=== PATIENT | female | born 2000 | race Caucasian/White ===

== ENCOUNTER 2022-08-29 11:21 | Emergency (ER) | payer BC, SELFPAY ==
[2022-08-29 11:28] VITALS: BP 146/100; PULSE 88; TEMP 36.8; O2SAT 97; BMI 40.4
--- NOTE | 2022-08-29 11:55 | ED.GENADUL1 ---
HPI - General Adult General Chief complaint: Nausea/Vomiting/Diarrhea Stated complaint: BACK PAIN / VOTMING Time Seen by Provider: 08/29/22 11:29 Source: patient Mode of arrival: walk-in History of Present Illness HPI narrative: patient presents with right low back pain and now onset of menstrual discomfort today. She does not have personal or family history kidney stones. She has had previous appendectomy and cholecystectomy. She has had cysts on her ovaries but is not had torsion. Said the pain is quite intense since making her nauseated at this time. She says there is a possibility of . She's not been running a fever. Most discomfort is in the low back area and now it does radiate a little bit to the front as well. Movement seems to make it just a little bit more uncomfortable Related Data Home Medications Medication Instructions Recorded Confirmed promethazine 25 mg rectal 25 mg NV PRN nausea and vomiting 08/29/22 suppository (Promethegan) Allergies Allergy/AdvReac Type Severity Reaction Status Date / Time ceftriaxone [From Rocephin] Allergy Unknown Verified 08/29/22 11:33 sumatriptan [From Imitrex] Allergy Unknown Verified 08/29/22 11:33 Exam Narrative Exam Narrative: awake alert uncomfortable is having dry heaves and vomiting at this time. Vital signs are noted. Problem focused examination shows her back to be nontender to percussion. She has good breath sounds bilaterally with no wheezes rales or rhonchi. She does have a little bit of aching with palpation in her right lower lumbar area. There is no evidence of shingles or trauma or injury. Lower extremities have no edema or evidence of deep vein thrombosis or phlebitis. Abdomen showed no peritoneal findings rebound or rigidity. Mild tenderness in the lower right quadrant. Constitutional Vital Signs - 24 hr 08/29/22 11:28 Temperature 98.3 F Pulse Rate [Monitor] 88 Blood Pressure [Right Arm] 146/100 H Pulse Oximetry 97 Oxygen Delivery Method Room Air Course Vital Signs Vital signs: Vital Signs Temperature 98.3 F 08/29/22 11:28 Pulse Rate 88 08/29/22 11:28 Blood Pressure 146/100 H 08/29/22 11:28 Pulse Oximetry 97 08/29/22 11:28 Oxygen Delivery Method Room Air 08/29/22 11:28 Temperature 98.3 F 08/29/22 11:28 Pulse Rate 88 08/29/22 11:28 Blood Pressure 146/100 H 08/29/22 11:28 Pulse Oximetry 97 08/29/22 11:28 Oxygen Delivery Method Room Air 08/29/22 11:28 Medical Decision Making MDM Narrative Medical decision making narrative: this patient presents with history of cyclic vomiting. She said she started developing a problem when she was [age] years old and has seen specialists in various tertiary centers with no known etiology. She was actually recently prescribed to use marijuana for sleep disorder and does not see an association between recent marijuana use and any worsening of the cyclic vomiting that she's had for many years. Her CT scan did not show indication of pancreatitis or bowel obstruction or acute abdominal process or kidney stones. She was given sequential doses of IV fluids and anti-emetics including haloperidol which seem to be beneficial for her. She says she feels good enough that she would like to go home. Discharge Plan Discharge Chief Complaint: Nausea/Vomiting/Diarrhea Clinical Impression: Cyclic vomiting syndrome Patient Disposition: Home, Self-Care Time of Disposition Decision: 13:40 Prescriptions / Home Meds: No Action promethazine [Promethegan] 25 mg suppository 25 mg NV PRN (Reason: nausea and vomiting) Instructions: Cyclic Vomiting Syndrome (ED) Additional Instructions: frequent small sips of fluids to stay hydrated, medications as needed Stand Alone Forms: Portal Instructions Referrals: PATRICK LAUREANO [Primary Care Provider] - 1 week
--- NOTE | 2022-08-29 11:57 | CT_ITS ---
[address] [address] Patient Name: ERIN VALENTE MRN: [id number] date: 2000 Sex: F Assigned Patient Location: ER Current Patient Location: ER Accession/Order Number: [id number] Exam Date: 08/29/2022 12:18 Report Date: 08/29/2022 12:45 At the request of: MOON NEWELL Procedure: CT abdomen pelvis wo con EXAM: CT abdomen pelvis wo con HISTORY: pain right sided abdominal and back pain for a few days. Nausea and vomiting today. COMPARISON: 01/17/2021. TECHNIQUE: Axial CT imaging was performed through the abdomen and pelvis without intravenous contrast. Multiplanar reformats were performed. Dose reduction techniques were achieved by using automated exposure control and/or adjustment of mA and/or kV according to patient size and/or use of iterative reconstruction technique. FINDINGS: Lung bases: Lung bases are clear. No pleural effusion. GI upper: Unremarkable. Liver: Normal size and contour. Gallbladder: Cholecystectomy. Biliary system: No intra or extrahepatic biliary ductal dilatation. Spleen: Normal size. Pancreas: Unremarkable. Adrenal glands: Normal adrenal glands. Kidneys/ureters: Normal contours. No hydronephrosis or ureterolithiasis. No nephrolithiasis. Vessels: No aneurysm. Lymph Nodes: No lymphadenopathy. Small bowel: No wall thickening or dilatation. Colon: No wall thickening or dilatation. Appendix: Appendectomy. Peritoneal cavity: No free fluid or peritoneum. Lower : Tampon is noted within the vagina. The bladder is not well distended which limits evaluation. Question minimal haziness about the bladder. Several small left adnexal cystic structures are similar to prior examination, is likely physiologic in nature. Bones: No acute bony abnormality. Soft tissues: No acute finding. Additional findings: None. IMPRESSION: 1. No evidence of acute intra-abdominal abnormality. 2. Minimal haziness about the bladder-please exclude cystitis on clinical grounds. 3. Additional findings as above. Electronically authenticated by: JAMES KEN Date: 08/29/2022 12:45
[2022-08-29 12:09] LABS: Basophils Absolute Auto 0.1 10^3/uL (0.0-0.1); Basophils Percent Auto 0.4 % (0.2-2.0); Eosinophils Absolute Auto 0.1 10^3/uL (0.0-0.7); Eosinophils Percent Auto 0.9 % (0.9-7.0); Hematocrit 42.4 % (36.0-48.0); Hemoglobin 14.4 g/dL (12.0-16.0); Immature Granulocytes Abs Auto 0.05 10^3/uL (0.00-0.03); Immature Granulocytes Pct Auto 0.4 % (0.0-0.5); Lymphocytes Absolute Auto 3.3 10^3/uL (1.2-3.8); Lymphocytes Percent Auto 25.8 % (20.5-60.0); Mean Corpuscular Hemoglobin 28.6 pg (26.7-34.0); Mean Corpuscular Volume 84.3 fL (81.0-99.0); Mean Platelet Volume 9.3 fL (9.5-13.5); Monocytes Absolute Auto 0.9 10^3/uL (0.3-0.8); Monocytes Percent Auto 6.7 % (1.7-12.0); Neutrophils Absolute Auto 8.3 10^3/uL (1.4-6.5); Neutrophils Percent Auto 65.8 % (43.0-75.0); Platelet Count 501 10^3/uL (150-450); Red Blood Count 5.03 10^6/uL (4.20-5.40); Red Cell Distribution Width 13.9 % (11.0-15.0); White Blood Count 12.6 10^3/uL (4.0-11.0)
[2022-08-29] MEDS: KETOROLAC TROMETHAMINE 30 MG/ML VIAL IM (12:09)
[2022-08-29] MEDS: 0.9 % SODIUM CHLORIDE 1,000 ML 999 ML IV (12:09)
[2022-08-29] MEDS: ONDANSETRON PF 4 MG/2 ML VIAL IV (12:09)
[2022-08-29 12:10] LABS: Bilirubin Urine NEGATIVE (NEGATIVE); Blood Urine LARGE (NEGATIVE); Clarity Urine CLEAR (CLEAR); Color Urine LT. YELLOW (YELLOW); Glucose Urine UA NEGATIVE (NEGATIVE); Ketones Urine NEGATIVE (NEGATIVE); Leukocyte Esterase Urine NEGATIVE (NEGATIVE); Nitrite Urine NEGATIVE (NEGATIVE); Protein Urine NEGATIVE (NEG/TRACE); Specific Gravity Urine 1.015 (1.005-1.025); Urobilinogen Urine 0.2 EU/dL (0.2-1.0); pH Urine 7.5 (5.0-9.0)
[2022-08-29 12:12] LABS: Urine Microscopic Indicated YES
[2022-08-29 12:13] LABS: HCG Qualitative Urine* NEGATIVE (NEGATIVE)
[2022-08-29 12:18] LABS: Alanine Aminotransferase 20 U/L (14-59); Albumin Level 3.9 g/dL (3.4-5.0); Alkaline Phosphatase 74 U/L (46-116); Anion Gap 16.1; Aspartate Amino Transferase 19 U/L (15-37); BUN Creatinine Ratio 16.7; Bilirubin Total 0.3 mg/dL (0.2-1.0); Calcium 9.2 mg/dL (8.5-10.1); Carbon Dioxide 21.8 mmol/L (21.0-32.0); Chloride 103 mmol/L (98-107); Estimated GFR (African America >60 (>=60); Estimated GFR (Non-African Ame >60 (>=60); Glucose 109 mg/dL (74-106); Potassium 3.9 mmol/L (3.5-5.1); Sodium 137 mmol/L (136-145); Total Protein 7.9 g/dL (6.4-8.2)
[2022-08-29 12:21] LABS: Bacteria Urine TRACE #/HPF (NONE SEEN); Cast Seen? NONE SEEN #/LPF (NONE SEEN); Crystals Seen? None Seen #/HPF (None Seen); Mucus Urine NONE SEEN (NONE SEEN); RBC Urine 50-75 #/HPF (0-2); Squamous Epithelial Cell Urine FEW #/LPF (NONE/RARE); Urine Culture Indicated NO; WBC Urine 0-2 #/HPF (NONE SEEN)
[2022-08-29] MEDS: HALOPERIDOL LACTATE 5 MG/ML VIAL IV (13:34)
== END 2022-08-29 14:00 | disposition home or self-care (01) ==
PROVIDERS: Emergency Provider Emergency Medicine Emergency Medical Services; PCP Nurse Practitioner Family
DX: R11.15 Cyclical vomiting syndrome unrelated to migraine (principal); Z90.49 Acquired absence of other specified parts of digestive tract
CPT/HCPCS: 36415; 74176; 80053; 81003; 81015; 83690; 84703; 85025; 96372; 96374; 96375; 99284

== ENCOUNTER 2022-08-30 07:24 | Emergency (ER) | payer BC, SELFPAY ==
[2022-08-30 07:29] VITALS: BP 170/88; PULSE 98; RESP 16; TEMP 36.9; O2SAT 100; BMI 40.4
--- NOTE | 2022-08-30 07:31 | ED.GENADUL1 ---
HPI - General Adult General Chief complaint: Nausea/Vomiting/Diarrhea Stated complaint: CYCLICAL VOMITING SYNDROME Time Seen by Provider: 08/30/22 07:27 History of Present Illness HPI narrative: this patient was here yesterday by for vomiting. It was concluded that she probably does in fact have non-marijuana related cyclic vomiting. She felt much better at the time of discharge and did not want any further therapy. She did not want any prescriptions because she had everything she needs at home. Extensive laboratory testing disclosed no evidence of dehydration, there is no ketones in her urine renal function and electrolytes were essentially normal. CT the abdomen was equally benign. She received IV hydration and felt better at discharge yesterday. She said she went home and laid down but now the vomiting is come back. She's not developed any diarrhea or fever. She does not have any vertigo or vestibular dysfunction symptoms. Says she's not been out deep down fluids. Related Data Home Medications Medication Instructions Recorded Confirmed promethazine 25 mg rectal 25 mg IN PRN nausea and vomiting 08/29/22 suppository (Promethegan) Allergies Allergy/AdvReac Type Severity Reaction Status Date / Time ceftriaxone [From Rocephin] Allergy Unknown Verified 08/29/22 11:33 sumatriptan [From Imitrex] Allergy Unknown Verified 08/29/22 11:33 PFSH PFSH Social History Smoking status: Never smoker Exam Narrative Exam Narrative: this patient does not. He is miserable and she was yesterday. Her overall appearance looks much better. Vital signs still show borderline tachycardia but she is afebrile. No respiratory distress. I did review the chart from previous day including her laboratory tests and CT scan. This information was then shared with both the patient and her mother who is with her today. I did review the protocol that suggested by her gastroenterology doctor at [facility]. Essentially includes Benadryl in addition to what she already received yesterday. Skin is warm and dry she's not diaphoretic or clammy. There is no evidence of pallor or anemia his eye examination. Respiratory she has no restaurant distress cough or congestion. Neurological cognition and mentation speech affect are all normal today. Constitutional Vital Signs - 24 hr 08/30/22 07:29 Temperature 98.4 F Pulse Rate [Monitor] 98 H Respiratory Rate 16 Blood Pressure [Left Arm] 170/88 H Pulse Oximetry 100 Oxygen Delivery Method Room Air Course Vital Signs Vital signs: Vital Signs Temperature 98.4 F 08/30/22 07:29 Pulse Rate 98 H 08/30/22 07:29 Respiratory Rate 16 08/30/22 07:29 Blood Pressure 170/88 H 08/30/22 07:29 Pulse Oximetry 100 08/30/22 07:29 Oxygen Delivery Method Room Air 08/30/22 07:29 Temperature 98.4 F 08/30/22 07:29 Pulse Rate 98 H 08/30/22 07:29 Respiratory Rate 16 08/30/22 07:29 Blood Pressure 170/88 H 08/30/22 07:29 Pulse Oximetry 100 08/30/22 07:29 Oxygen Delivery Method Room Air 08/30/22 07:29 Medical Decision Making MDM Narrative Medical decision making narrative: I do not believe she needed repeat laboratory testing today. There is no ketones as I noted yesterday and nothing was suggested she has any compensating issues today since she has no fever, no blood in her stool. She was given D5 normal saline, IV Benadryl and another dose of Zofran and felt improved. She states that she had a little bit of acid reflux type symptoms so was given some Pepcid and discharged in satisfactory condition Discharge Plan Discharge Chief Complaint: Nausea/Vomiting/Diarrhea Clinical Impression: Cyclic vomiting syndrome Patient Disposition: Home, Self-Care Time of Disposition Decision: 09:07 Prescriptions / Home Meds: No Action promethazine [Promethegan] 25 mg suppository 25 mg IN PRN (Reason: nausea and vomiting) Instructions: Cyclic Vomiting Syndrome (ED) Stand Alone Forms: Portal Instructions Referrals: PATRICK LAUREANO [Primary Care Provider] - 1 week
[2022-08-30] MEDS: DIPHENHYDRAMINE HCL 50 MG/ML (1ML) VIAL 25 MG IV (08:00)
[2022-08-30] MEDS: ONDANSETRON PF 4 MG/2 ML VIAL IV (08:00)
== END 2022-08-30 09:13 | disposition home or self-care (01) ==
PROVIDERS: Emergency Provider Emergency Medicine Emergency Medical Services; PCP Nurse Practitioner Family
DX: R11.15 Cyclical vomiting syndrome unrelated to migraine (principal)
CPT/HCPCS: 96374; 96375; 99284

== ENCOUNTER 2022-09-14 08:51 | Outpatient (OUT) | payer BC, SELFPAY ==
--- NOTE | 2022-09-14 09:02 | XR_ITS ---
[address] [address] Patient Name: ERIN VALENTE MRN: [id number] date: 2000 Sex: F Assigned Patient Location: [facility] Current Patient Location: [facility] Accession/Order Number: [id number] Exam Date: 09/14/2022 09:24 Report Date: 09/14/2022 10:25 At the request of: PATRICK LAUREANO Procedure: XR cervical spine 2-3V EXAM: XR cervical spine 2-3V HISTORY: Lumbago With Sciatica M54.40, Cervicalgia M54.2 COMPARISON: None. TECHNIQUE: 2 views FINDINGS: Satisfactory alignment. Maintained vertebral body heights and disc spaces. No acute fracture or subluxation. Unremarkable soft tissues. XR/XR cervical spine 2-3V IMPRESSION: Unremarkable exam. Electronically authenticated by: ROMMEL FIGUEROA Date: 09/14/2022 10:25
--- NOTE | 2022-09-14 09:02 | XR_ITS ---
The [address] [address] Patient Name: ERIN VALENTE MRN: [id number] date: 2000 Sex: F Assigned Patient Location: [facility] Current Patient Location: [facility] Accession/Order Number: [id number] Exam Date: 09/14/2022 09:24 Report Date: 09/14/2022 10:02 At the request of: PATRICK LAUREANO Procedure: XR lumbar spine 2-3V EXAM: XR lumbar spine 2-3V HISTORY: Lumbago With Sciatica M54.40, Cervicalgia M54.2 COMPARISON: None. TECHNIQUE: 2 views FINDINGS: Satisfactory alignment. Maintained vertebral body heights and disc spaces. No significant degenerative changes. No acute fracture or subluxation. Unremarkable soft tissues. XR/XR lumbar spine 2-3V IMPRESSION: Unremarkable exam. Electronically authenticated by: ROMMEL FIGUEROA Date: 09/14/2022 10:02
--- NOTE | 2022-09-14 09:02 | XR_ITS ---
The [address] [address] Patient Name: ERIN VALENTE MRN: [id number] date: 2000 Sex: F Assigned Patient Location: [facility] Current Patient Location: Accession/Order Number: [id number] Exam Date: 09/14/2022 09:24 Report Date: 09/15/2022 07:30 At the request of: PATRICK LAUREANO Procedure: XR thoracic spine 3V EXAMINATION: XR thoracic spine 3V HISTORY: Lumbago With Sciatica M54.40, Cervicalgia M54.2 COMPARISON: No relevant comparison available. FINDINGS: BONES: Normal alignment with no acute fracture or spondylolisthesis. Minimal anterior degenerative spondylosis DISC SPACES: Normal. No significant disc height narrowing, subluxation, or endplate abnormality. PARASPINOUS: Negative. No paraspinous abnormality is seen. OTHER: Negative. XR/XR thoracic spine 3V IMPRESSION: Minimal spondylosis Electronically authenticated by: DOC HUFFMAN Date: 09/15/2022 07:30
== END 2022-09-14 08:52 | disposition home or self-care (01) ==
LOC: RAD 08:52
PROVIDERS: PCP Nurse Practitioner Family; Visit Provider Nurse Practitioner Family
DX: M54.2 Cervicalgia (principal); M54.40 Lumbago with sciatica, unspecified side; M47.814 Spondylosis without myelopathy or radiculopathy, thoracic region
CPT/HCPCS: 72040; 72072; 72100

== ENCOUNTER 2023-03-07 08:38 | Outpatient (OUT) | payer BC, SELFPAY ==
[2023-03-07 09:24] LABS: Estimated Average Glucose 100 mg/dL; Glycohemoglobin A1C 5.1 % (4.5-6.2)
[2023-03-07 09:43] LABS: Basophils Absolute Auto 0.1 10^3/uL (0.0-0.1); Basophils Percent Auto 0.5 % (0.2-2.0); Eosinophils Absolute Auto 0.1 10^3/uL (0.0-0.7); Eosinophils Percent Auto 1.2 % (0.9-7.0); Hematocrit 40.2 % (36.0-48.0); Hemoglobin 13.1 g/dL (12.0-16.0); Immature Granulocytes Abs Auto 0.02 10^3/uL (0.00-0.03); Immature Granulocytes Pct Auto 0.2 % (0.0-0.5); Lymphocytes Absolute Auto 2.4 10^3/uL (1.2-3.8); Lymphocytes Percent Auto 25.5 % (20.5-60.0); Mean Corpuscular HGB Conc 32.6 g/dL (29.9-35.2); Mean Corpuscular Hemoglobin 28.1 pg (26.7-34.0); Mean Corpuscular Volume 86.3 fL (81.0-99.0); Mean Platelet Volume 9.3 fL (9.5-13.5); Monocytes Absolute Auto 0.6 10^3/uL (0.3-0.8); Monocytes Percent Auto 6.4 % (1.7-12.0); Neutrophils Absolute Auto 6.3 10^3/uL (1.4-6.5); Neutrophils Percent Auto 66.2 % (43.0-75.0); Platelet Count 454 10^3/uL (150-450); Red Blood Count 4.66 10^6/uL (4.20-5.40); Red Cell Distribution Width 13.5 % (11.0-15.0); White Blood Count 9.5 10^3/uL (4.0-11.0)
[2023-03-07 10:04] LABS: Alanine Aminotransferase 20 U/L (14-59); Albumin Globulin Ratio 1.1; Albumin Level 3.8 g/dL (3.4-5.0); Alkaline Phosphatase 65 U/L (46-116); Anion Gap 14.5; Aspartate Amino Transferase 9 U/L (15-37); BUN Creatinine Ratio 14.3; Bilirubin Total 0.2 mg/dL (0.2-1.0); Calcium 8.9 mg/dL (8.5-10.1); Carbon Dioxide 26.5 mmol/L (21.0-32.0); Chloride 101 mmol/L (98-107); Chol HDL Ratio 3.6; Cholesterol 207 mg/dL (<=200); Estimated GFR (African America >60 (>=60); Estimated GFR (Non-African Ame >60 (>=60); Globulin 3.6 g/dL; Glucose 94 mg/dL (74-106); HDL Cholesterol 58 mg/dL (40-60); Sodium 138 mmol/L (136-145); TSH W/ REFLEX FT4 1.884 uIU/mL (0.358-3.740); Total Protein 7.4 g/dL (6.4-8.2); Triglycerides 41 mg/dL (<=150); VLDL CHOLESTEROL 8.2 mg/dL
[2023-03-08 07:09] LABS: HCV Ab Non Reactive (Non Reactive); HIV Ab/p24 Ag Screen Non Reactive (Non Reactive)
== END 2023-03-07 08:39 | disposition home or self-care (01) ==
LOC: LAB 08:39
PROVIDERS: PCP Nurse Practitioner Primary Care; Visit Provider Nurse Practitioner Primary Care
DX: Z00.00 Encounter for general adult medical examination without abnormal findings (principal); Z11.59 Encounter for screening for other viral diseases; Z11.4 Encounter for screening for human immunodeficiency virus [HIV]; Z13.6 Encounter for screening for cardiovascular disorders; Z13.29 Encounter for screening for other suspected endocrine disorder
CPT/HCPCS: 36415; 80053; 80061; 83036; 84443; 85025; 86803; 87389

== ENCOUNTER 2023-09-07 13:47 | Observation (INO) | payer BC, SELFPAY ==
[2023-09-07 13:54] VITALS: BP 181/120; PULSE 90; TEMP 36.9; O2SAT 100; BMI 89.0
--- NOTE | 2023-09-07 14:03 | US_ITS ---
The [address] [address] Patient Name: ERIN VALENTE MRN: [id number] date: 2000 Sex: F Assigned Patient Location: ED.MAIN Current Patient Location: [place] Accession/Order Number: [id number] Exam Date: 09/07/2023 14:05 Report Date: 09/07/2023 19:01 At the request of: TRAVON RAMOS Procedure: US pelvis transvaginal TRANSVAGINAL PELVIC SONOGRAPHY WITH DOPPLER ANALYSIS, 09/07/2023 2:05 PM EDT. CLINICAL HISTORY: IUD placement COMPARISON: None FINDINGS: The uterus measures 8.4 x 5.4 x 4.1 cm. 7 mm endometrial stripe. Intrauterine device is seen within the endometrium with the distal tip located 1.8 cm below the most superior margin of the fundal portion of the endometrium. The arms of the device did not seem to be open. No myometrial mass identified. Right ovary measures 2 x 2.1 x 1.9 cm demonstrating normal color and spectral Doppler vascularity with the right resistive index measuring 0.44. The left ovary is not visualized. No free fluid. US/US pelvis transvaginal IMPRESSION: 1. There is a 7 mm endometrial stripe containing an intrauterine device with the most distal tip located 1.8 cm below the most superior margin of the fundal portion of the endometrium. The arms of the device did not seem to be open. 2. Right ovary has a normal appearance. The left ovary is not visualized. No adnexal mass or free fluid. Electronically authenticated by: Francisco BOWER Date: 09/07/2023 19:01
--- NOTE | 2023-09-07 14:10 | ED.GENADUL1 ---
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 She states she has had intermittent pelvic pain for the last 3 months since her IUD was placed by a securities settlement processor in [place]. She states she followed up 1 time from the time of placement with a securities settlement processor and made them aware that she was having pelvic pain. They told her it was normal. She states she went to [facility] several months ago for the same and had an unremarkable ultrasound. She states the pain was more severe today on the suprapubic abdomen. She denies urinary changes. No fevers or upper respiratory symptoms. She has not had any diarrhea. No medications taken prior to arrival. She has a history of cyclic vomiting syndrome. She does not have any antiemetics at home currently. Patient has had a previous cholecystectomy and appendectomy. Related Data Home Medications ?Medication ?Instructions ?Recorded ?Confirmed No Known Home Medications 09/07/23 09/07/23 Allergies Allergy/AdvReac Type Severity Reaction Status Date / Time ceftriaxone [From Rocephin] Allergy Mild Abdominal Verified 09/07/23 14:06 Pain sumatriptan [From Imitrex] Allergy Unknown Abdominal Verified 09/07/23 14:06 Pain Opioid HPI Opioid Management Most Recent Opioid Data: Last Pain Scale 9 09/07/23 14:48 Last MAR Pain Assessment 09/07/23 14:48 Review of Systems ROS Constitutional Denies: fever or chills Ears, nose, mouth, and throat Denies: throat pain or nasal congestion Respiratory Denies: shortness of breath Gastrointestinal Reports: abdominal pain, nausea and vomiting; Denies: diarrhea Genitourinary Reports: pelvic pain; Denies: painful urination Musculoskeletal Reports: back pain; Denies: neck pain Integumentary/Breast Denies: rash Endocrine Denies: excessive urination Hematologic/Lymphatic Denies: easy bruising or easy bleeding PFSH PFSH Social History Smoking status: Never smoker Exam Narrative Exam Narrative: Gen.: Awake, alert, in no distress Head: Normocephalic, atraumatic ENT: Moist mucous membranes Respiratory: No respiratory distress, lungs clear bilaterally Cardio: Regular rate and rhythm Gastrointestinal: Abdomen is soft, nondistended and Mildly tender to palpation in the suprapubic abdomen; No guarding or rebound Extremities: Moves extremities equally, no injuries noted Psych: Normal mood and affect Neuro: No focal neuro deficit Skin: Warm, dry, intact Constitutional Vital Signs, click to edit/add: Last Vital Signs Temp 98.4 F 09/07/23 13:54 Pulse 90 09/07/23 13:54 Resp 20 09/07/23 13:54 BP 181/120 H 09/07/23 13:54 Pulse Ox 100 09/07/23 13:54 O2 Del Method Room Air 09/07/23 13:54 Course Vital Signs Vital signs: Vital Signs Temperature 98.4 F 09/07/23 13:54 Pulse Rate 90 09/07/23 13:54 Respiratory Rate 20 09/07/23 13:54 Blood Pressure 181/120 H 09/07/23 13:54 Pulse Oximetry 100 09/07/23 13:54 Oxygen Delivery Method Room Air 09/07/23 13:54 Temperature 98.4 F 09/07/23 13:54 Pulse Rate 90 09/07/23 13:54 Respiratory Rate 20 09/07/23 13:54 Blood Pressure 181/120 H 09/07/23 13:54 Pulse Oximetry 100 09/07/23 13:54 Oxygen Delivery Method Room Air 09/07/23 13:54 Medical Decision Making MDM Narrative Medical decision making narrative: Patient treated with IV fluids, multiple rounds of Zofran and Phenergan. She is still actively retching. Pelvic pain has improved after treatment with pain medication. Vital signs are stable in the ER, blood pressure was rechecked within normal limits. Labs show minimal leukocytosis and minimal hypokalemia with otherwise normal labs although urine shows a contaminated urinary tract infection. Patient continues to vomit and will be admitted for intractable nausea and vomiting, cyclic vomiting and mild UTI. Ultrasound of the pelvis shows the patient has an IUD that is low-lying, no evidence of perforation or displacement at this time. She was instructed to follow-up with her securities settlement processor for this, we will admit for treatment of her nausea and vomiting. Admitted to Dr. Vee for further evaluation and treatment. SUPERVISED APC VISIT, PHYSICIAN ATTESTATION: Based on the medical record the care appears appropriate. ? Medical Records Medical records reviewed: Yes I reviewed the patient's medical records Lab Data Lab results reviewed: Yes I reviewed the patient's lab results Labs: Lab Results 09/07/23 09/07/23 Range/Units 14:14 14:37 WBC 13.2 H (4.0-11.0) 10^3/uL RBC 4.81 (4.20-5.40) 10^6/uL Hgb 13.7 (12.0-16.0) g/dL Hct 40.1 (36.0-48.0) % MCV 83.4 (81.0-99.0) fL MCH 28.5 (26.7-34.0) pg MCHC 34.2 (29.9-35.2) g/dL RDW 13.4 (11.0-15.0) % Plt Count 486 H (150-450) 10^3/uL MPV 9.1 L (9.5-13.5) fL Neut % (Auto) 69.3 (43.0-75.0) % Lymph % (Auto) 24.2 (20.5-60.0) % [place] % (Auto) 5.5 (1.7-12.0) % Eos % (Auto) 0.2 L (0.9-7.0) % Baso % (Auto) 0.4 (0.2-2.0) % Neut # (Auto) 9.2 H (1.4-6.5) 10^3/uL Lymph # (Auto) 3.2 (1.2-3.8) 10^3/uL [place] # (Auto) 0.7 (0.3-0.8) 10^3/uL Eos # (Auto) 0.0 (0.0-0.7) 10^3/uL Baso # (Auto) 0.1 (0.0-0.1) 10^3/uL Abs Immat Gran (auto) 0.05 H (0.00-0.03) 10^3/uL Imm/Tot Granulo (auto) 0.4 (0.0-0.5) % Sodium 138 (136-145) mmol/L Potassium 3.4 L (3.5-5.1) mmol/L Chloride 102 (98-107) mmol/L Carbon Dioxide 22.2 (21.0-32.0) mmol/L Anion Gap 17.2 BUN 12.0 (7.0-18.0) mg/dL Creatinine 0.79 (0.55-1.02) mg/dL Est GFR ( Amer) >60 (>=60) Est GFR (Non-Af Amer) >60 (>=60) BUN/Creatinine Ratio 15.2 Glucose 112 H (74-106) mg/dL Calcium 9.3 (8.5-10.1) mg/dL Total Bilirubin 0.4 (0.2-1.0) mg/dL AST 12 L (15-37) U/L ALT 17 (14-59) U/L Alkaline Phosphatase 79 (46-116) U/L Total Protein 8.1 (6.4-8.2) g/dL Albumin 4.3 (3.4-5.0) g/dL Globulin 3.8 g/dL Albumin/Globulin Ratio 1.1 Lipase 45.0 (16.0-77.0) U/L Serum HCG, Qual Negative (NEGATIVE) Urine Color Lt. yellow (YELLOW) Urine Clarity Sl cloudy (CLEAR) Urine pH 6.0 (5.0-9.0) Ur Specific [place] 1.020 (1.005-1.025) Urine Protein Negative (NEG/TRACE) mg/dL Urine Glucose (UA) Negative (NEGATIVE) mg/dL Urine Ketones Negative (NEGATIVE) mg/dL Urine Occult Blood Large A (NEGATIVE) Urine Nitrite Negative (NEGATIVE) Urine Bilirubin Negative (NEGATIVE) Urine Urobilinogen 0.2 (0.2-1.0) EU/dL Ur Leukocyte Esterase Trace A (NEGATIVE) Urine RBC >100 A (0-2) #/HPF Urine WBC 2-5 A (NONE SEEN) #/HPF Ur Squamous Epith Cells Moderate A (NONE/RARE) #/LPF Urine Crystals None seen (None Seen) #/HPF Urine Bacteria Moderate A (NONE SEEN) #/HPF Urine Casts None seen (NONE SEEN) #/LPF Urine Mucus None seen (NONE SEEN) Ur Culture Indicated? Yes Imaging Data US - abdomen: Attestation: I have reviewed the pertinent imaging results. Discharge Plan Discharge Chief Complaint: Abdominal Pain Clinical Impression: Cyclical vomiting, UTI (urinary tract infection), Intractable vomiting, Pelvic pain Patient Disposition: Admitted as Observation Time of Disposition Decision: 17:30 Prescriptions / Home Meds: No Action No Known Home Medications Print Language: Upper Sorbian Referrals: Jason Beckman NP [Primary Care Provider] - 1 week
[2023-09-07] MEDS: 0.9 % SODIUM CHLORIDE 1,000 ML 1000 ML IV (14:46)
[2023-09-07 14:47] LABS: Basophils Absolute Auto 0.1 10^3/uL (0.0-0.1); Basophils Percent Auto 0.4 % (0.2-2.0); Eosinophils Percent Auto 0.2 % (0.9-7.0); Hematocrit 40.1 % (36.0-48.0); Hemoglobin 13.7 g/dL (12.0-16.0); Immature Granulocytes Abs Auto 0.05 10^3/uL (0.00-0.03); Immature Granulocytes Pct Auto 0.4 % (0.0-0.5); Lymphocytes Absolute Auto 3.2 10^3/uL (1.2-3.8); Lymphocytes Percent Auto 24.2 % (20.5-60.0); Mean Corpuscular HGB Conc 34.2 g/dL (29.9-35.2); Mean Corpuscular Hemoglobin 28.5 pg (26.7-34.0); Mean Corpuscular Volume 83.4 fL (81.0-99.0); Mean Platelet Volume 9.1 fL (9.5-13.5); Monocytes Absolute Auto 0.7 10^3/uL (0.3-0.8); Monocytes Percent Auto 5.5 % (1.7-12.0); Neutrophils Absolute Auto 9.2 10^3/uL (1.4-6.5); Neutrophils Percent Auto 69.3 % (43.0-75.0); Platelet Count 486 10^3/uL (150-450); Red Blood Count 4.81 10^6/uL (4.20-5.40); Red Cell Distribution Width 13.4 % (11.0-15.0); White Blood Count 13.2 10^3/uL (4.0-11.0)
[2023-09-07] MEDS: FAMOTIDINE/PF 20 MG/2 ML VIAL IV ×2 (14:47→21:09)
[2023-09-07] MEDS: ONDANSETRON PF 4 MG/2 ML VIAL IV ×3 (14:47→19:34)
[2023-09-07 14:48] LABS: Bilirubin Urine NEGATIVE (NEGATIVE); Blood Urine LARGE (NEGATIVE); Clarity Urine SL CLOUDY (CLEAR); Color Urine LT. YELLOW (YELLOW); Glucose Urine UA NEGATIVE (NEGATIVE); Ketones Urine NEGATIVE (NEGATIVE); Leukocyte Esterase Urine TRACE (NEGATIVE); Nitrite Urine NEGATIVE (NEGATIVE); Protein Urine NEGATIVE (NEG/TRACE); Urobilinogen Urine 0.2 EU/dL (0.2-1.0)
[2023-09-07] MEDS: HYDROMORPHONE HCL 0.5 MG/0.5 ML SYRINGE IV (14:48)
[2023-09-07 14:56] LABS: Urine Microscopic Indicated YES
[2023-09-07 14:56] LABS: HCG Qualitative NEGATIVE (NEGATIVE); Internal Control Within Normal Limits
[2023-09-07 15:03] LABS: Bacteria Urine MODERATE #/HPF (NONE SEEN); Cast Seen? NONE SEEN #/LPF (NONE SEEN); Crystals Seen? None Seen #/HPF (None Seen); Mucus Urine NONE SEEN (NONE SEEN); RBC Urine >100 #/HPF (0-2); Squamous Epithelial Cell Urine MODERATE #/LPF (NONE/RARE); Urine Culture Indicated YES
[2023-09-07 15:09] LABS: Alanine Aminotransferase 17 U/L (14-59); Albumin Globulin Ratio 1.1; Albumin Level 4.3 g/dL (3.4-5.0); Alkaline Phosphatase 79 U/L (46-116); Anion Gap 17.2; Aspartate Amino Transferase 12 U/L (15-37); BUN Creatinine Ratio 15.2; Bilirubin Total 0.4 mg/dL (0.2-1.0); Calcium 9.3 mg/dL (8.5-10.1); Carbon Dioxide 22.2 mmol/L (21.0-32.0); Chloride 102 mmol/L (98-107); Estimated GFR (African America >60 (>=60); Estimated GFR (Non-African Ame >60 (>=60); Globulin 3.8 g/dL; Glucose 112 mg/dL (74-106); Potassium 3.4 mmol/L (3.5-5.1); Sodium 138 mmol/L (136-145); Total Protein 8.1 g/dL (6.4-8.2)
[2023-09-07] MEDS: PROMETHAZINE HCL 12.5 MG in 0.9 % SODIUM CHLORIDE 50 ML 202 MG IV (16:05)
[2023-09-07] MEDS: CIPROFLOXACIN IN 5 % DEXTROSE 400 MG/200 ML PIGGYBACK 200 MG IV (17:38)
[2023-09-07 18:38] VITALS: BP 135/82; PULSE 88; O2SAT 100
[2023-09-07 19:01] VITALS: BP 136/84; PULSE 87; TEMP 36.6; O2SAT 99; BMI 42.0
[2023-09-07] MEDS: LACTATED RINGER'S SOLUTION 1,000 ML 125 ML IV (19:34)
[2023-09-07] MEDS: ACETAMINOPHEN 500 MG TABLET 1000 MG PO (19:38)
[2023-09-07] MEDS: HYOSCYAMINE SULFATE 0.125 MG TAB.SUBL PO (21:09)
[2023-09-07] MEDS: PROMETHAZINE HCL 25 MG/ML VIAL IM (21:09)
[2023-09-07] MEDS: LORAZEPAM 2 MG/ML VIAL 0.5 MG IV (21:47)
[2023-09-07] MEDS: KETOROLAC TROMETHAMINE 30 MG/ML VIAL IVP (21:47)
[2023-09-07] MEDS: LEVOFLOXACIN IN DEXTROSE 5 % 750 MG/150 ML IV.SOLN 100 MG IV (23:17)
[2023-09-08] MEDS: ONDANSETRON PF 4 MG/2 ML VIAL IV ×2 (00:11→04:15)
[2023-09-08] MEDS: PROMETHAZINE HCL 25 MG in 0.9 % SODIUM CHLORIDE 50 ML 204 MG IV (01:16)
[2023-09-08] MEDS: KETOROLAC TROMETHAMINE 30 MG/ML VIAL 15 MG IVP (04:15)
--- NOTE | 2023-09-08 05:39 | PC.NURSE ---
pt up throughout the night with nausea and multiple episodes of vomiting.pt was given multiple doses of zofran, IM phenergan. Pt still nauseous and vomiting and found little relief with the medications. Night hospitalist made aware and ordered ONCE IV phenergan. RN administered the IV phenergan per order. IV phenergan seemed to help for a few hours but the patient is still vomiting.
[2023-09-08 05:41] VITALS: BP 137/89; PULSE 85; TEMP 36.7; O2SAT 98
[2023-09-08] MEDS: LACTATED RINGER'S SOLUTION 1,000 ML 125 ML IV (05:44)
[2023-09-08 05:58] LABS: Basophils Percent Auto 0.2 % (0.2-2.0); Hematocrit 38.6 % (36.0-48.0); Hemoglobin 13.2 g/dL (12.0-16.0); Immature Granulocytes Abs Auto 0.07 10^3/uL (0.00-0.03); Immature Granulocytes Pct Auto 0.4 % (0.0-0.5); Lymphocytes Absolute Auto 1.2 10^3/uL (1.2-3.8); Lymphocytes Percent Auto 6.4 % (20.5-60.0); Mean Corpuscular HGB Conc 34.2 g/dL (29.9-35.2); Mean Corpuscular Volume 84.8 fL (81.0-99.0); Mean Platelet Volume 9.9 fL (9.5-13.5); Monocytes Absolute Auto 0.7 10^3/uL (0.3-0.8); Neutrophils Absolute Auto 16.1 10^3/uL (1.4-6.5); Platelet Count 449 10^3/uL (150-450); Red Blood Count 4.55 10^6/uL (4.20-5.40); Red Cell Distribution Width 13.6 % (11.0-15.0); White Blood Count 18.1 10^3/uL (4.0-11.0)
[2023-09-08 06:52] LABS: Alanine Aminotransferase 19 U/L (14-59); Albumin Globulin Ratio 1.1; Alkaline Phosphatase 73 U/L (46-116); Aspartate Amino Transferase 16 U/L (15-37); BUN Creatinine Ratio 15.9; Bilirubin Total 0.5 mg/dL (0.2-1.0); Carbon Dioxide 19.1 mmol/L (21.0-32.0); Chloride 99 mmol/L (98-107); Estimated GFR (African America >60 (>=60); Estimated GFR (Non-African Ame >60 (>=60); Globulin 3.8 g/dL; Glucose 131 mg/dL (74-106); Potassium 3.1 mmol/L (3.5-5.1); Sodium 133 mmol/L (136-145); Total Protein 7.8 g/dL (6.4-8.2)
[2023-09-08 07:46] LABS: Amylase 94 U/L (25-115)
--- NOTE | 2023-09-08 08:54 | CT_ITS ---
The [address] [address] Patient Name: ERIN VALENTE MRN: [id number] date: 2000 Sex: F Assigned Patient Location: Current Patient Location: Accession/Order Number: [id number] Exam Date: 09/08/2023 09:20 Report Date: 09/08/2023 11:06 At the request of: WALKER ROMAN Procedure: CT abdomen pelvis wo con PROCEDURE: CT abdomen pelvis wo con DATE: 09/08/2023 8:20 AM CDT COMPARISONS: 08/29/2022 CLINICAL INDICATION: 22 years Female abdominal pain TECHNIQUE: Axial images were obtained. Coronal and sagittal reformations were created. Individualized dose optimization technique was used for the procedure performed. FINDINGS: The lower lung badillo are clear. There are no focal hepatic abnormalities. The liver has a normal appearance on these unenhanced images. The spleen, pancreas and adrenals are within normal limits. There is evidence of previous cholecystectomy There is no evidence of significant renal cysts. No renal masses are identified on these unenhanced images. There is no hydronephrosis. There is no evidence of nephrolithiasis. There is no ureterolithiasis. The urinary bladder shows no abnormalities on these unenhanced images. An IUD is noted within the uterus as was noted on pelvic ultrasound from the previous day. The aorta is normal in caliber. The inferior vena cava appears unremarkable. There is no evidence of abdominal or pelvic adenopathy. The visualized bowel loops show no abnormal dilatation or wall thickening. There is no evidence of colitis or enteritis. It appears there is been previous appendectomy. There is no evidence of significant free fluid, no evidence of abnormal fluid collections and no evidence of free intraperitoneal air. No significant abnormalities are identified of the visualized osseous structures. CT/CT abdomen pelvis wo con IMPRESSION: There is no evidence of significant abnormalities on this CT of the abdomen and pelvis. Electronically authenticated by: RYAN WILSON Date: 09/08/2023 11:06
[2023-09-08] MEDS: METOCLOPRAMIDE HCL 10 MG/2 ML VIAL IVP (09:41)
[2023-09-08] MEDS: POTASSIUM CHLORIDE 40 MEQ in 0.9 % SODIUM CHLORIDE 250 ML 67.5 MEQ IV (09:41)
[2023-09-08] MEDS: FAMOTIDINE/PF 20 MG/2 ML VIAL IV (09:41)
[2023-09-08] MEDS: CEFTAZIDIME 1,000 MG in 0.9 % SODIUM CHLORIDE 50 ML 100 MG IV (09:42)
[2023-09-08] MEDS: 0.9 % SODIUM CHLORIDE 1,000 ML 125 ML IV (09:42)
[2023-09-08 09:53] VITALS: BP 143/83; PULSE 73; TEMP 36.9; O2SAT 99
--- NOTE | 2023-09-08 10:17 | P.HP_ITS ---
HPI H&P: HPI History of Present Illness Chief complaint: PELVIC PAIN, CYCLIC VOMITING, UTI Narrative: Patient with a history of cyclic vomiting syndrome, presented to emergency room with increasing nausea vomiting, found to have significant leukocyturia and hematuria. Unable to control nausea vomiting in the emergency room. Patient does feel like this is progressed into her cyclic vomiting syndrome. Patient admitted overnight to observation for IV fluids. Initial call from the nurse this morning patient having increasing difficulty with controlling nausea, IV Phenergan minimally effective at that time. When I saw patient up on the medical surgical floor, she was resting comfortably in bed sitting up, no further emesis over the previous 3 hours. She had been tolerating sips of liquids. Discussed results of significant hematuria, she had no history of kidney stones, awaiting results of CT scan. Opioid HPI Opioid Management Most Recent Pain and Opioid Data: Last Pain Scale 4 09/08/23 06:00 Last Pain Assessment 09/08/23 11:29 Last MAR Pain Assessment 09/08/23 05:44 Last ORT Total Score 0 09/07/23 19:01 Last ORT Risk Category Low Risk 09/07/23 19:01 Review of Systems ROS Status of ROS 10 or more systems reviewed and unremark able except as noted in history and below PFSH PFSH Surgical History (Updated 09/08/23 @ 00:54 by Connie Black RN) Hx of cholecystectomy ?Z90.49 - Acquired absence of other specified parts of digestive tract (ICD- 10) History of appendectomy ?Z90.49 - Acquired absence of other specified parts of digestive tract (ICD- 10) Family History (Updated 09/07/23 @ 18:59 by Connie Black, LEO) Other Family history of hypertension Social History (Updated 09/07/23 @ 19:00 by Connie Black, LEO) Within the past year, how often did you have a drink containing alcohol: never Within the past year, how many standard drinks containing alcohol did you have on a typical day: 1 or 2 Within the past year, how often did you have six or more drinks on one occasion: never Total score: 0 Score interpretation: A score less than 3 is consistent with normal alcohol consumption. Smoking status: Never smoker Non-prescribed substance use: denies use Highest level of school completed/degree received: some college, no degree Are you now , , , , never or living with a partner: living with partner In a typical week, how many times do you talk on the telephone with family, friends, or neighbors: 3 or more times per week How often do you get together with friends or relatives: 3 or more times per week How often do you attend zoroastrian or taoism services: never Feeling down, depressed, or hopeless: more than half the days Feel stressed/tense/nervous/anxious/difficulty sleeping: rather much Do you think of yourself as: straight/heterosexual Gender Identity: female Meds Home Medications and Allergies Home Medications ?Medication ?Instructions ?Recorded ?Confirmed ?Type No Known Home Medications 09/07/23 09/07/23 History hyoscyamine sulfate 0.125 mg 0.125 mg PO Q6H PRN dyspepsia #20 09/08/23 Rx sublingual tablet (Oscimin SL) tabs levofloxacin 750 mg tablet 750 mg PO DAILY 7 days #7 tabs 09/08/23 Rx pantoprazole 40 mg tablet,delayed 40 mg PO QAM 4 weeks #28 tabs 09/08/23 Rx release (Protonix) promethazine 25 mg tablet 25 mg PO Q6H PRN nausea and 09/08/23 Rx vomiting #14 tabs Allergies Allergy/AdvReac Type Severity Reaction Status Date / Time ceftriaxone [From Rocephin] Allergy Mild Abdominal Verified 09/07/23 14:06 Pain sumatriptan [From Imitrex] Allergy Unknown Abdominal Verified 09/07/23 14:06 Pain Exam Constitutional Vital Signs, click to edit/add: Last Vital Signs Temp 98.4 F 09/08/23 09:53 Pulse 73 09/08/23 09:53 Resp 18 09/08/23 09:53 BP 143/83 H 09/08/23 09:53 Pulse Ox 99 09/08/23 09:53 O2 Del Method Room Air 09/08/23 09:53 Documenting provider has reviewed patient's vital signs: yes Common normals: no apparent distress Chest Common normals: inspection of chest normal Respiratory Common normals: normal respiratory effort Cardio Common normals: regular rate and regular rhythm GI Common normals: Normal to inspection, nondistended, normoactive bowel sounds present and soft to palpation; tender Palpation: tender Details: epigastric Extremity Common normals: normal to inspection Results Labs Labs: Short CBC 09/07/23 09/08/23 Range/Units 14:37 04:59 WBC 13.2 H 18.1 H (4.0-11.0) 10^3/uL Hgb 13.7 13.2 (12.0-16.0) g/dL Hct 40.1 38.6 (36.0-48.0) % Plt Count 486 H 449 (150-450) 10^3/uL BMP 09/07/23 09/08/23 14:37 04:59 Sodium 138 133 L Potassium 3.4 L 3.1 L Chloride 102 99 Carbon Dioxide 22.2 19.1 L BUN 12.0 11.0 Creatinine 0.79 0.69 Glucose 112 H 131 H Calcium 9.3 9.0 Liver Function 09/07/23 09/08/23 Range/Units 14:37 04:59 Total Bilirubin 0.4 0.5 (0.2-1.0) mg/dL AST 12 L 16 (15-37) U/L ALT 17 19 (14-59) U/L Alkaline Phosphatase 79 73 (46-116) U/L Albumin 4.3 4.0 (3.4-5.0) g/dL Urine 09/07/23 Range/Units 14:14 Urine Color Lt. yellow (YELLOW) Urine Clarity Sl cloudy (CLEAR) Urine pH 6.0 (5.0-9.0) Ur Specific [place] 1.020 (1.005-1.025) Urine Protein Negative (NEG/TRACE) mg/dL Urine Glucose (UA) Negative (NEGATIVE) mg/dL Assessment and Plan Assessment and Plan (1) UTI (urinary tract infection): (2) Cyclical vomiting: Plan Uncontrolled hypertension, leukocytosis, thrombocythemia secondary to acute UTI which resulted in significant dehydration and an exacerbation of her cyclic vomiting syndrome. So far this morning treatment has been effective. Checking CT scan to rule out nephrolithiasis. If kidney stone protocol is negative, tolerates lunch, she can be discharged home later this morning early afternoon. Acute UTI-continue with levofloxacin, add dose of Rocephin this morning. Hypokalemia-supplement orally-likely secondary to the vomiting Admission status: Patient with acute exacerbation of her cyclic vomiting syndrome secondary to dehydration secondary to the likely UTI, possible nephrolithiasis-patient feels much improved, more than likely discharge to home later today, maintain observation status.
--- NOTE | 2023-09-08 10:18 | P.DS_ITS ---
DS: Providers Provider Date of admission: 09/07/23 18:48 Primary care physician: Jason Beckman NP DS: Diagnosis Discharge Diagnosis (1) Pelvic pain: (2) Intractable vomiting: Plan Uncontrolled hypertension, leukocytosis, thrombocythemia secondary to acute UTI which resulted in significant dehydration and an exacerbation of her cyclic vomiting syndrome. Improving at the time of discharge Acute UTI-improving at the time of discharge Hypokalemia-follow as an outpatient Admission status: Patient with acute exacerbation of her cyclic vomiting sy ndrome secondary to dehydration secondary to the likely UTI, possible nephrolithiasis-patient feels much improved, more than likely discharge to home later today, maintain observation status. DS: Summary Hospital Course Hospital Course: Patient was admitted with acute exacerbation of her cyclic vomiting syndrome secondary to acute UTI, kidney stone protocol for nephrolithiasis was negative, significant hematuria though. They can be followed up as an outpatient. She also has possible malplaced IUD, recommended seeing local [facility] for evaluation. Plan is if she tolerates lunch, she can be discharged home in improved condition. Medications see list. Follow-up with her PCP and [facility] within the next week or 2 Status at Discharge Overall status at discharge: patient is back to baseline Time Spent with Patient Time attestation: Total time spent providing and/or coordinating discharge services: Time spent: greater than 30 minutes Exam Constitutional Vital Signs, click to edit/add: Last Vital Signs Temp 98.4 F 09/08/23 09:53 Pulse 73 09/08/23 09:53 Resp 18 09/08/23 09:53 BP 143/83 H 09/08/23 09:53 Pulse Ox 99 09/08/23 09:53 O2 Del Method Room Air 09/08/23 09:53 Documenting provider has reviewed patient's vital signs: yes Common normals: no apparent distress Chest Common normals: inspection of chest normal Respiratory Common normals: normal respiratory effort Cardio Common normals: regular rate and regular rhythm GI Common normals: Normal to inspection, nondistended, normoactive bowel sounds present and soft to palpation; tender Palpation: tender Details: epigastric Extremity Common normals: normal to inspection DS: Data Data Completed and Pending Labs on day of discharge: Labs from last 24 hours 09/08/23 09/07/23 09/07/23 04:59 14:37 14:14 WBC 18.1 H 13.2 H RBC 4.55 4.81 Hgb 13.2 13.7 Hct 38.6 40.1 MCV 84.8 83.4 MCH 29.0 28.5 MCHC 34.2 34.2 RDW 13.6 13.4 Plt Count 449 486 H MPV 9.9 9.1 L Neut % (Auto) 89.0 H 69.3 Lymph % (Auto) 6.4 L 24.2 [place] % (Auto) 4.0 5.5 Eos % (Auto) 0.0 L 0.2 L Baso % (Auto) 0.2 0.4 Neut # (Auto) 16.1 H 9.2 H Lymph # (Auto) 1.2 3.2 [place] # (Auto) 0.7 0.7 Eos # (Auto) 0.0 0.0 Baso # (Auto) 0.0 0.1 Abs Immat Gran (auto) 0.07 H 0.05 H Imm/Tot Granulo (auto) 0.4 0.4 Sodium 133 L 138 Potassium 3.1 L 3.4 L Chloride 99 102 Carbon Dioxide 19.1 L 22.2 Anion Gap 18.0 17.2 BUN 11.0 12.0 Creatinine 0.69 0.79 Est GFR ( Amer) >60 >60 Est GFR (Non-Af Amer) >60 >60 BUN/Creatinine Ratio 15.9 15.2 Glucose 131 H 112 H Calcium 9.0 9.3 Total Bilirubin 0.5 0.4 AST 16 12 L ALT 19 17 Alkaline Phosphatase 73 79 Total Protein 7.8 8.1 Albumin 4.0 4.3 Globulin 3.8 3.8 Albumin/Globulin Ratio 1.1 1.1 Amylase 94 Lipase 29.0 45.0 Serum HCG, Qual Negative Urine Color Lt. yellow Urine Clarity Sl cloudy Urine pH 6.0 Ur Specific [place] 1.020 Urine Protein Negative Urine Glucose (UA) Negative Urine Ketones Negative Urine Occult Blood Large A Urine Nitrite Negative Urine Bilirubin Negative Urine Urobilinogen 0.2 Ur Leukocyte Esterase Trace A Urine RBC >100 A Urine WBC 2-5 A Ur Squamous Epith Cells Moderate A Urine Crystals None seen Urine Bacteria Moderate A Urine Casts None seen Urine Mucus None seen Ur Culture Indicated? Yes Discharge Plan Discharge Disposition: Home, Self-Care Discharge Medications: New levofloxacin 750 mg tablet 750 mg PO DAILY 7 Days Qty: 7 0RF hyoscyamine sulfate [Oscimin SL] 0.125 mg tablet, sublingual 0.125 mg PO Q6H PRN (Reason: dyspepsia) Qty: 20 0RF pantoprazole [Protonix] 40 mg tablet,delayed release (DR/EC) 40 mg PO QAM 28 Days Qty: 28 0RF promethazine 25 mg tablet 25 mg PO Q6H PRN (Reason: nausea and vomiting) Qty: 14 0RF No Action No Known Home Medications Activity: increase activity as tolerated and resume usual activities as tolerated Diet: advance to your usual diet Print Language: Maltese Patient Instructions: Urinary Tract Infection in Women (DC), Hypokalemia (DC), Cyclic Vomiting Syndrome (GEN) Forms: Portal Instructions Follow Up Appointments: Follow up with Physician [facility] Data [facility] in 1-2 weeks Discharge Date/Time: 09/08/23 13:57
[2023-09-08] MEDS: HYOSCYAMINE SULFATE 0.125 MG TAB.SUBL 0.25 MG PO (11:17)
[2023-09-08 12:32] VITALS: O2SAT 100
[2023-09-08 12:54] VITALS: BP 122/72; PULSE 71; TEMP 37; O2SAT 98
--- NOTE | 2023-09-10 12:37 | CM.DCFOLLOWU ---
Person spoke with:patient How are you feeling? well How is your pain? none Did you understand your discharge instructions? yes Do you have any questions about your discharge instructions? no Were you given any prescriptions at discharge? yes Were you able to get your prescriptions filled? yes Do you understand how to take your medications as ordered? yes Do you have any questions about your follow up appointment and do you plan to keep your follow up appointment? no questions, follow up tomorrow Is there anything else that you would like to discuss? no Questions/Comments/Concerns/Other: none
== END 2023-09-08 13:57 | disposition home or self-care (01) ==
LOC: ER 17:31 → MS 09-08 10:14
PROVIDERS: Physician Assistant; Admitting Provider Family Medicine; Emergency Provider Emergency Medicine; PCP Nurse Practitioner Primary Care; Visit Provider Family Medicine
DX: N39.0 Urinary tract infection, site not specified (principal); E86.0 Dehydration; R11.15 Cyclical vomiting syndrome unrelated to migraine; I10 Essential (primary) hypertension; D75.839 Thrombocytosis, unspecified; D72.829 Elevated white blood cell count, unspecified; R31.9 Hematuria, unspecified; R10.2 Pelvic and perineal pain; Z97.5 Presence of (intrauterine) contraceptive device
CPT/HCPCS: 36415; 74176; 76830; 80053; 81001; 82150; 83690; 84703; 85025; 87086; 94761; 96361; 96365; 96366; 96367; 96368; 96372; 96375; 96376; 99285; G0378; J0713; J0744; J1170; J1885; J2060; J2250; J2405; J2765; J3480

== ENCOUNTER 2023-09-12 12:44 | Emergency (ER) | payer BC, SELFPAY ==
[2023-09-12 12:49] VITALS: BP 143/97; PULSE 83; TEMP 36.5; O2SAT 98; BMI 40.4
[2023-09-12 13:20] LABS: Basophils Percent Auto 0.4 % (0.2-2.0); Eosinophils Absolute Auto 0.1 10^3/uL (0.0-0.7); Eosinophils Percent Auto 0.7 % (0.9-7.0); Hematocrit 40.5 % (36.0-48.0); Hemoglobin 13.6 g/dL (12.0-16.0); Immature Granulocytes Abs Auto 0.05 10^3/uL (0.00-0.03); Immature Granulocytes Pct Auto 0.5 % (0.0-0.5); Lymphocytes Absolute Auto 2.4 10^3/uL (1.2-3.8); Lymphocytes Percent Auto 24.8 % (20.5-60.0); Mean Corpuscular HGB Conc 33.6 g/dL (29.9-35.2); Mean Corpuscular Hemoglobin 28.7 pg (26.7-34.0); Mean Corpuscular Volume 85.4 fL (81.0-99.0); Monocytes Absolute Auto 0.6 10^3/uL (0.3-0.8); Neutrophils Absolute Auto 6.5 10^3/uL (1.4-6.5); Neutrophils Percent Auto 67.6 % (43.0-75.0); Platelet Count 429 10^3/uL (150-450); Red Blood Count 4.74 10^6/uL (4.20-5.40); Red Cell Distribution Width 13.1 % (11.0-15.0); White Blood Count 9.6 10^3/uL (4.0-11.0)
[2023-09-12] MEDS: 0.9 % SODIUM CHLORIDE 1,000 ML 999 ML IV (13:20)
[2023-09-12] MEDS: DIPHENHYDRAMINE HCL 50 MG/ML VIAL 25 MG IV (13:21)
[2023-09-12] MEDS: FAMOTIDINE/PF 20 MG/2 ML VIAL IV (13:22)
[2023-09-12] MEDS: METOCLOPRAMIDE HCL 10 MG/2 ML VIAL IVP (13:24)
--- NOTE | 2023-09-12 13:26 | ED_ITS ---
HPI - Nausea/Vomiting/Diarrhea General Chief complaint: Nausea/Vomiting/Diarrhea Stated complaint: ABDOMINAL PAIN Time Seen by Provider: 09/12/23 12:45 Source: patient and friend Mode of arrival: walk-in Limitations: no limitations History of Present Illness HPI Narrative: 22-year-old female presents to the emergency department with fianc? with complaint of nausea, upset stomach. Patient with history of cyclical vomiting syndrome and is worried she is going to start throwing up. She had her IUD removed this past Sunday, was admitted to the hospital for cyclic vomiting on the same day. She was having some lower abdominal discomfort. Home medications had been helping with that. However, when symptoms began today, became concerned, and came in. Denies any known fever, chills Quality:?As above Severity:?Moderate Timing:?As above, constant Context: Normal setting and activity? Modifying factors:?None Associated symptoms: As above Related Data Home Medications ?Medication ?Instructions ?Recorded ?Confirmed No Known Home Medications 09/07/23 09/07/23 Previous Rx's ?Medication ?Instructions ?Recorded hyoscyamine sulfate 0.125 mg 0.125 mg PO Q6H PRN dyspepsia #20 09/08/23 sublingual tablet (Oscimin SL) tabs levofloxacin 750 mg tablet 750 mg PO DAILY 7 days #7 tabs 09/08/23 pantoprazole 40 mg tablet,delayed 40 mg PO QAM 4 weeks #28 tabs 09/08/23 release (Protonix) promethazine 25 mg tablet 25 mg PO Q6H PRN nausea and 09/08/23 vomiting #14 tabs metoclopramide HCl 10 mg tablet 10 mg PO Q6H PRN nausea and 09/12/23 (Reglan) vomiting #14 tabs Allergies Allergy/AdvReac Type Severity Reaction Status Date / Time ceftriaxone [From Rocephin] Allergy Mild Abdominal Verified 09/07/23 14:06 Pain sumatriptan [From Imitrex] Allergy Unknown Abdominal Verified 09/07/23 14:06 Pain Review of Systems ROS Narrative CONST: Denies fever, chills HENT: Denies congestion, sore throat EYES: Denies eye redness, visual disturbance RESP: Denies cough, shortness of breath CV: Denies chest pain, palpitations GI: + nausesa. Denies abd pain, vomiting : Denies dysuria, flank pain MS: Denies back pain, myalgias SKIN: Denies color change, rash NEURO: Denies numbness, weakness PSYCHIATRIC: Denies confusion, agitation PFSH PFSH Medical History (Updated 09/12/23 @ 14:30 by MOLLY Hammer) Pelvic pain ?R10.2 - Pelvic and perineal pain (ICD-10) Intractable vomiting ?R11.10 - Vomiting, unspecified (ICD-10) UTI (urinary tract infection) ?N39.0 - Urinary tract infection, site not specified (ICD-10) Cyclical vomiting ?R11.15 - Cyclical vomiting syndrome unrelated to migraine (ICD-10) Surgical History (Updated 09/08/23 @ 00:54 by Connie Black, LEO) Hx of cholecystectomy ?Z90.49 - Acquired absence of other specified parts of digestive tract (ICD- 10) History of appendectomy ?Z90.49 - Acquired absence of other specified parts of digestive tract (ICD- 10) Family History (Updated 09/07/23 @ 18:59 by Connie Black, LEO) Other Family history of hypertension Social History (Updated 09/07/23 @ 19:00 by Connie Black, LEO) Within the past year, how often did you have a drink containing alcohol: never Within the past year, how many standard drinks containing alcohol did you have on a typical day: 1 or 2 Within the past year, how often did you have six or more drinks on one occasion: never Total score: 0 Score interpretation: A score less than 3 is consistent with normal alcohol consumption. Smoking status: Never smoker Non-prescribed substance use: denies use Highest level of school completed/degree received: some college, no degree Are you now , , , , never or living with a partner: living with partner In a typical week, how many times do you talk on the telephone with family, frie nds, or neighbors: 3 or more times per week How often do you get together with friends or relatives: 3 or more times per week How often do you attend restorationism or anabaptism services: never Feeling down, depressed, or hopeless: more than half the days Feel stressed/tense/nervous/anxious/difficulty sleeping: rather much Do you think of yourself as: straight/heterosexual Gender Identity: female Exam Narrative Exam Narrative: Vital signs reviewed Nurses notes noted CONST: Nontoxic, well appearing, well nourished, in no distress.? No diaphoresis.?? HENT: normocephalic, atraumatic, moist mucous membrane, no abnormalities of the nose noted, hearing normal EYES: normal appearing conjunctiva, no apparent discharge bilat NECK: normal appearance CV: normal rate, regular rhythm, no murmur RESP: normal effort, speaking in complete sentences. Lung sounds clear and equal bilat.? No wheezes, rales, rhonchi GI: normal bowel sounds, soft, no distension, nontender : no CVA tenderness MS: no edema, tenderness SKIN: no pallor NEURO: A&Ox 3, no focal findings PSYCH: normal mood, affect Constitutional Vital Signs, click to edit/add: Last Vital Signs Temp 97.7 F 09/12/23 12:49 Pulse 71 09/12/23 14:19 Resp 18 09/12/23 14:19 BP 120/73 09/12/23 14:19 Pulse Ox 100 09/12/23 14:19 O2 Del Method Room Air 09/12/23 12:49 Course Reevaluation(s) Reevaluation #1: On reevaluation, patient is feeling better. She was able to tolerate p.o. liquids. Discussed with patient and fianc? results, plan, and disposition. She is agreeable with plan Time: 14:30 Vital Signs Vital signs: Vital Signs Temperature 97.7 F 09/12/23 12:49 Pulse Rate 83 09/12/23 12:49 Respiratory Rate 18 09/12/23 12:49 Blood Pressure 143/97 H 09/12/23 12:49 Pulse Oximetry 98 09/12/23 12:49 Oxygen Delivery Method Room Air 09/12/23 12:49 Temperature 97.7 F 09/12/23 12:49 Pulse Rate 71 09/12/23 14:19 Respiratory Rate 18 09/12/23 14:19 Blood Pressure 120/73 09/12/23 14:19 Pulse Oximetry 100 09/12/23 14:19 Oxygen Delivery Method Room Air 09/12/23 12:49 MDM - Nausea/Vomiting/Diarrhea MDM Narrative Medical decision making narrative: This is a pleasant 22-year-old female who presented to the emergency department with fianc? with complaint of nausea. Patient states chronic history of cyclic vomiting syndrome and with the symptoms she is currently experiencing, she is worried she is going to start throwing up. Was admitted to the hospital this past Sunday with cyclic vomiting syndrome and lower abdominal pain. States had IUD out on Sunday. Currently does not have any abdominal pain. States stomach does feel somewhat sour. Denies any fever, chills, vomiting, diarrhea. Labs reveal no leukocytosis, anemia, electrolyte imbalance, renal impairment, thrombocytopenia. LFTs, lipase unremarkable. test was negative. Patient was treated with IV fluids, Reglan, Pepcid, Benadryl with overall improvement of her symptoms. Patient was asymptomatic at time of disposition. No vomiting during ED course. She was tolerating p.o. liquids at time of disposition Favor nausea, history of cyclic vomiting syndrome Acute abdomen less likely based on history and physical exam Pancreatitis, cholecystitis less likely based on history and physical exam, laboratory testing History is also obtained from fianc? Inpatient charting reviewed from this past Sunday Consideration was made for CT of the abdomen, pelvis, but she did not have any abdominal pain and her symptoms resolved. Disposition ? The patient was discharged. Plan: Patient will be discharged to home. Condition at time of disposition: stable She was given prescription for Reglan Advised to follow up with primary provider. Advised to return for any worsening and/or development of new, concerning signs or symptoms PLEASE NOTE: Portions of the medical record may have been produced using electronic fountain waitress/waiter and may contain errors with respect to translation of words which may not have been identified prior to finalization of the chart. Medical Records Attestation: I reviewed the patient's medical records. Lab Data Attestation: I reviewed the patient's lab results. Labs: Lab Results 09/12/23 Range/Units 13:13 WBC 9.6 (4.0-11.0) 10^3/uL RBC 4.74 (4.20-5.40) 10^6/uL Hgb 13.6 (12.0-16.0) g/dL Hct 40.5 (36.0-48.0) % MCV 85.4 (81.0-99.0) fL MCH 28.7 (26.7-34.0) pg MCHC 33.6 (29.9-35.2) g/dL RDW 13.1 (11.0-15.0) % Plt Count 429 (150-450) 10^3/uL MPV 9.0 L (9.5-13.5) fL Neut % (Auto) 67.6 (43.0-75.0) % Lymph % (Auto) 24.8 (20.5-60.0) % [place] % (Auto) 6.0 (1.7-12.0) % Eos % (Auto) 0.7 L (0.9-7.0) % Baso % (Auto) 0.4 (0.2-2.0) % Neut # (Auto) 6.5 (1.4-6.5) 10^3/uL Lymph # (Auto) 2.4 (1.2-3.8) 10^3/uL [place] # (Auto) 0.6 (0.3-0.8) 10^3/uL Eos # (Auto) 0.1 (0.0-0.7) 10^3/uL Baso # (Auto) 0.0 (0.0-0.1) 10^3/uL Abs Immat Gran (auto) 0.05 H (0.00-0.03) 10^3/uL Imm/Tot Granulo (auto) 0.5 (0.0-0.5) % Sodium 137 (136-145) mmol/L Potassium 4.1 (3.5-5.1) mmol/L Chloride 103 (98-107) mmol/L Carbon Dioxide 27.0 (21.0-32.0) mmol/L Anion Gap 11.1 BUN 15.0 (7.0-18.0) mg/dL Creatinine 0.80 (0.55-1.02) mg/dL Est GFR ( Amer) >60 (>=60) Est GFR (Non-Af Amer) >60 (>=60) BUN/Creatinine Ratio 18.8 Glucose 90 (74-106) mg/dL Calcium 9.0 (8.5-10.1) mg/dL Magnesium 2.0 (1.8-2.4) mg/dL Total Bilirubin 0.3 (0.2-1.0) mg/dL AST 13 L (15-37) U/L ALT 25 (14-59) U/L Alkaline Phosphatase 76 (46-116) U/L Total Protein 7.6 (6.4-8.2) g/dL Albumin 4.0 (3.4-5.0) g/dL Globulin 3.6 g/dL Albumin/Globulin Ratio 1.1 Lipase 64.0 (16.0-77.0) U/L Serum HCG, Qual Negative (NEGATIVE) Discharge Plan Discharge Stand Alone Forms: Portal Instructions Chief Complaint: Nausea/Vomiting/Diarrhea Clinical Impression: Nausea, Malaise Patient Disposition: Home, Self-Care Time of Disposition Decision: 14:29 Condition: Good Mode of Transportation: Private Vehicle Prescriptions / Home Meds: New metoclopramide HCl [Reglan] 10 mg tablet 10 mg PO Q6H PRN (Reason: nausea and vomiting) Qty: 14 0RF No Action No Known Home Medications levofloxacin 750 mg tablet 750 mg PO DAILY 7 Days Qty: 7 0RF hyoscyamine sulfate [Oscimin SL] 0.125 mg tablet, sublingual 0.125 mg PO Q6H PRN (Reason: dyspepsia) Qty: 20 0RF pantoprazole [Protonix] 40 mg tablet,delayed release (DR/EC) 40 mg PO QAM 28 Days Qty: 28 0RF promethazine 25 mg tablet 25 mg PO Q6H PRN (Reason: nausea and vomiting) Qty: 14 0RF Print Language: Greenlandic Instructions: Acute Nausea and Vomiting (ED) Referrals: Jason Beckman PLANT TECHNICIAN/CONTROL ROOM OPERATOR [Primary Care Provider] - 1 week
[2023-09-12 13:38] LABS: HCG Qualitative NEGATIVE (NEGATIVE); Internal Control Within Normal Limits
[2023-09-12 14:12] LABS: Alanine Aminotransferase 25 U/L (14-59); Albumin Globulin Ratio 1.1; Alkaline Phosphatase 76 U/L (46-116); Anion Gap 11.1; Aspartate Amino Transferase 13 U/L (15-37); BUN Creatinine Ratio 18.8; Bilirubin Total 0.3 mg/dL (0.2-1.0); Chloride 103 mmol/L (98-107); Estimated GFR (African America >60 (>=60); Estimated GFR (Non-African Ame >60 (>=60); Globulin 3.6 g/dL; Glucose 90 mg/dL (74-106); Potassium 4.1 mmol/L (3.5-5.1); Sodium 137 mmol/L (136-145); Total Protein 7.6 g/dL (6.4-8.2)
[2023-09-12 14:17] VITALS: BP 97/54; PULSE 88; O2SAT 96
[2023-09-12 14:19] VITALS: BP 120/73; PULSE 71; O2SAT 100
== END 2023-09-12 14:37 | disposition home or self-care (01) ==
PROVIDERS: Physician Assistant; Emergency Provider Emergency Medicine; PCP Nurse Practitioner Primary Care
DX: R11.0 Nausea (principal); R53.81 Other malaise
CPT/HCPCS: 36415; 80053; 81001; 83690; 83735; 84703; 85025; 96374; 96375; 99284; J1200; J2765